=== PATIENT | female | born 1955 | race Caucasian/White ===

== ENCOUNTER 2017-12-18 16:38 | Emergency (ER) | payer BC ==
[~2017-12-18] VITALS: Ht 162.6 cm; Wt 80.4 kg
[~2017-12-18 16:38] MED LIST: ACCUPRIL40 MG PO; ALLERGY RELIEF10 M3 PO; AMLODIPINE BESYL5 MG PO; ASPIR 8181 M1 PO; BUPROPION XL300 MG PO; CRANBERRY200 MG PO; INDAPAMIDE1.25 MG PO; MICRO-K,K-DUR,10 ME1 PO; PREMPRO 0.451 TABLET PO; PROZAC20 M1 PO
[2017-12-18 17:54] LABS: APPEARANCE SL.HAZY ((CLEAR)); BILIRUBIN NEGATIVE; BLOOD NEGATIVE; COLOR YELLOW ((YELLOW)); GLUCOSE (STRIP) NEGATIVE; KETONES NEGATIVE; LEUKOCYTES LARGE; NITRITE NEGATIVE; PROTEIN (STRIP) NEGATIVE; SPECIFIC GRAVITY 1.024 (1.000-1.030); UROBILINOGEN 0.2 MG/DL (0.2-1.0)
[2017-12-18 18:01] LABS: HEMATOCRIT 42.9 % (36.0-46.0); HEMOGLOBIN 14.8 G/DL (11.9-15.5); MCH 29.7 PG (29.0-34.0); MCHC 34.5 G/DL (30.0-36.0); MCV 86.1 FL (83-99); PLATELET COUNT 272 K/uL (156-360); RBC DIS.WIDTH-CV 13.2 % (11.8-14.6); RBC DIS.WIDTH-SD 40.9 % (39-53); RED BLOOD COUNT 4.98 M/uL (3.80-5.20); WHITE BLOOD COUNT 12.4 K/uL (4.1-10.2)
[2017-12-18 18:08] LABS: BACTERIA NONE SEEN /HPF; EPITHELIAL CELLS 1+ /HPF; MUCUS TRACE /LPF; UCUL ADDED? YES; WHITE BLOOD CELLS 15-20 /HPF (0-5)
[2017-12-18 18:09] LABS: ALBUMIN 4.6 g/dL (3.2-4.8); CHLORIDE 107 mEq/L (99-109); POTASSIUM 3.8 mEq/L (3.7-5.4); SODIUM 145 mEq/L (136-147)
[2017-12-18 18:11] LABS: GLUCOSE 88 mg/dL (70-99); TOTAL PROTEIN 8.2 g/dL (6.4-8.3)
[2017-12-18 18:13] LABS: TOTAL BILIRUBIN 0.4 mg/dL (0.0-1.0)
[2017-12-18 18:15] LABS: ALKALINE PHOSPHATASE 112 IU/L (3-129); CREATININE 0.8 mg/dL (0.6-1.3); GFR ESTIMATE (CALCULATED) > 59 mL/min/
[2017-12-18 18:16] LABS: UREA NITROGEN (BUN) 9 mg/dL (9-23)
[2017-12-18 18:17] LABS: AST (GOT) 23 IU/L (2-34)
[2017-12-18 18:18] LABS: ALT (GPT) 28 IU/L (3-49)
[2017-12-18] MEDS ORDERED: AUGMENTIN875 MG PO (19:25)
[2017-12-18] MEDS ORDERED: NORCO 5/3251 TABLET PO (19:25)
[2017-12-18 20:05] VITALS: BP 145/81
== END 2017-12-18 20:06 | disposition home or self-care (01) ==
LOC: EME 16:38
PROVIDERS: Physician Assistant
DX: K57.92 Diverticulitis of intestine, part unspecified, without perforation or abscess without bleeding (principal); I10 Essential (primary) hypertension; F32.9 Major depressive disorder, single episode, unspecified; Z87.442 Personal history of urinary calculi; Z90.49 Acquired absence of other specified parts of digestive tract; Z79.82 Long term (current) use of aspirin
CPT/HCPCS: 74177; 80053; 81003; 85027; 87086; 99281; 99285; J1885; J2405; J3010; J7030